=== PATIENT | female | born 1985 | race Caucasian/White ===

== ENCOUNTER 2017-02-03 03:38 | Emergency (ER) | payer SELFPAY ==
[~2017-02-03] VITALS: Ht 152.4 cm; Wt 61.2 kg
[2017-02-03 03:43] VITALS: BP 123/86
--- NOTE | 2017-02-03 03:55 | NUR ---
31Y/F PT. PRESENTS TO ED WITH C/O BOTH EARS PAIN X 2 DAYS. PT. STATES NO FEVER, NO N/V/D. NO MEDICAL HX. AAO X4,AMBULATORY WITH STEDAY GAIT. RESPIRATIONS ROOM AIR, EVEN AND UNLABORED. SKIN WARM AND DRY. C/O BOTH EARS PAIN 8/10. VSS, ER MADE AWARE OF PT. STATUS.
--- NOTE | 2017-02-03 03:55 | NUR ---
PT. AMBULATES TO ER BED 5 AT THIS TIME
--- NOTE | 2017-02-03 04:05 | NUR ---
Patient being evaluated by DR. MEDRANO at bedside.
[2017-02-03] MEDS ORDERED: IBUPROFEN 800 MG TAB PO ONE (04:20)
[2017-02-03 04:33] VITALS: BP 120/80
--- NOTE | 2017-02-03 04:33 | NUR ---
Patient discharged with v/s stable. Written and verbal after care instructions given and explained. Patient alert, oriented and verbalized understanding of instructions. Ambulatory with steady gait. All questions addressed prior to discharge. ID band removed. Patient advised to follow up with PMD. Rx of NEOMYCIN SULFATE/POLYMYXIN B SULFATE/HYDROCORTISONE OTIC SOLUTION, AMOXICILLIN 875 MG, MOTRIN 800 MG given. Patient educated on indication of medication including possible reaction and side effects. Opportunity to ask questions provided and answered.
== END 2017-02-03 04:33 | disposition home or self-care (01) ==
LOC: MED 03:38
DX: H66.93 Otitis media, unspecified, bilateral (principal); Z90.89 Acquired absence of other organs; F17.210 Nicotine dependence, cigarettes, uncomplicated
CPT/HCPCS: 99283